=== PATIENT | male | born 1945 | race African-American/Black ===

== ENCOUNTER 2018-11-30 11:19 | Emergency (ER) | payer MEDICARE, OTHER ==
[~2018-11-30] VITALS: Ht 188 cm; Wt 118.2 kg
[~2018-11-30 11:19] MED LIST: HYDR-3965 PO; K, MAG and/or Phos replacement - Verify level? MC SCH; LISI-600 PO; SERT25TA PO; pantoprazole 40 MG vial IV SCH
[2018-11-30] MEDS ORDERED: propofol 1000mg/100ml bottle 100 ML IV PRN (11:35)
[2018-11-30] MEDS ORDERED: MIDAZolam 5mg/ml 2ml vial IV ONE (11:35)
[2018-11-30 11:57] VITALS: BP 161/67
[2018-11-30] MEDS ORDERED: rocuronium 10mg/ml inj IV ONE (12:00)
[2018-11-30] MEDS ORDERED: etomidate 2mg/ml inj. ONE (12:00)
[2018-11-30] MEDS ORDERED: DOBUTamine/D5W 500mg/250ml premix IV ONE (12:00)
[2018-11-30] MEDS ORDERED: naloxone 2mg/2ml inj ONE (12:00)
[2018-11-30] MEDS ORDERED: amiodarone 50MG/ML inj IV ONE (12:00)
[2018-11-30] MEDS ORDERED: NORepinephrine 1 mg/ml inj IV ONE (12:00)
[2018-11-30] MEDS ORDERED: calcium chloride 100 MG/1 ML inj IV ONE (12:00)
[2018-11-30] MEDS ORDERED: DOPamine/D5W 400mg/250ml bag IV ONE (12:00)
[2018-11-30] MEDS ORDERED: sod chloride 0.9% 10ml flush syringe IV ONE ×2 (12:00)
[2018-11-30] MEDS ORDERED: sodium bicarbonate (8.4%) 1 mEq/ml syringe ONE (12:00)
[2018-11-30] MEDS ORDERED: dextrose 50%-water 50ml dispensing syringe IV ONE (12:00)
[2018-11-30] MEDS ORDERED: epiNEPHrine 0.1mg/ml 10ml syringe ONE (12:00)
--- NOTE | 2018-11-30 12:01 | NUR ---
1144 100J SHOCK ADMINISTERED 1145 200J SHOCK ADMINISTERED, NO PULSE, CPR INITIATED 1146 1MG EPI GIVEN 1148 300MG AMIODARONE GIVEN, US INDICATED NO CHEST WALL MOVEMENT, NO CARDIAC CONTRACTILITY, CPR RESUMED 1149 0.4MG NARCAN GIVEN 1150 1MG EPI GIVEN, US INDICATED 0 CHEST WALL MOVEMENT, 0 CONTRACTILITY 1150 1MG CALCIUM, 1MG BICARB GIVEN 1151 1MG D50 GIVEN 1152 US INDICATED 0 CHEST WALL MOVEMENT, 0 CARDIAC CONTRACTILITY, V FIB- SHOCK ADMIN AT 200J, 0 WALL MOTION, 0 CONTRACTILITY, CPR RESUMED 1153 1MG EPI GIVEN 1154 PULSE CHECK 0 CHEST WALL MOVEMENT, 0 CONTRACTILITY 1156 PULSE PRESENT, HR 66, CO2 46 1157 161/67, HR 63, CO2 43 1158 END CODE FAMILY UPDATED BY DR GRANADOS
[2018-11-30 12:10] LABS: BASOPHILS % (AUTO) 0.1 % (0-1); HEMOGLOBIN 14.5 g/dl (14.0-17.9); MEAN PLATELET VOLUME 11.2 FL (7.4-10.4); MONOCYTES # (AUTO) 0.9 X10'3 (0-0.9); RED BLOOD COUNT 5.14 X10'6 (4.70-6.10)
[2018-11-30 12:12] LABS: EOSINOPHILS % (AUTO) 0.1 % (0-6); HEMATOCRIT 46.7 % (42.0-52.0); LYMPHOCYTES # (AUTO) 3.6 X10'3 (1.1-4.8); LYMPHOCYTES % (AUTO) 21.4 % (21-51); MEAN CORPUSCULAR HEMOGLOBIN 28.2 PG (27.0-31.0); MEAN CORPUSCULAR VOLUME 90.8 FL (78-98); MONOCYTES % (AUTO) 5.1 % (2-12); NEUTROPHILS # (AUTO) 12.2 X10'3 (1.8-7.7); NEUTROPHILS % (AUTO) 73.3 % (42-75); PLATELET COUNT 344 X10'3 (140-440); RED CELL DISTRIBUTION WIDTH 13.6 % (11.5-14.5); WHITE BLOOD COUNT 16.7 X10'3 (4.5-11.0)
--- NOTE | 2018-11-30 12:14 | NUR ---
DOBUTAMINE DRIP TITRATED UP TO 7MCG/KG/MIN AT THIS TIME.
[2018-11-30 12:16] LABS: INR 1.3 INR; PARTIAL THROMBOPLASTIN TIME 39 SECONDS (22-32); PROTHROMBIN TIME 12.6 SECONDS (9.0-12.0)
[2018-11-30 12:18] LABS: ALANINE AMINOTRANSFERASE 57 U/L (12-78); ALBUMIN 2.3 G/DL (3.4-5.0); ALBUMIN/GLOBULIN RATIO 0.4 (1.1-1.5); ALKALINE PHOSPHATASE 107 IU/L (46-116); ANION GAP 27 (8-16); ASPARTATE AMINO TRANSFERASE 99 U/L (10-37); BLOOD UREA NITROGEN 58 MG/DL (7-18); BUN/CREATININE RATIO 17.4 (5.4-32.0); CALCIUM 10.2 MG/DL (8.5-10.1); CHLORIDE 92 MMOL/L (99-107); CREATININE 3.33 MG/DL (0.60-1.10); GLUCOSE 290 MG/DL (70-104); SODIUM 133 MMOL/L (135-145); eGFR 22 ML/MIN
[2018-11-30 12:20] LABS: ABG BASE EXCESS -25.1 mmol/L (-2.0-3.0); ABG HCO3 9.7 mmol/L (22.0-26.0); ABG PCO2 (T) 59.4 mmHg (35.0-48.0); ABG PH (T) 6.821 (7.350-7.450); ABG PO2 (T) 82.2 mmHg (83-108); FCOHb 0.5 % (0.5-1.5); FMetHb 0.2 % (0.3-1.12); FO2Hb 86.4 % (94-100); PATIENT TEMPERATURE 35.9; PEEP 5 cm H2O; RESPIRATORY RATE 18 b/min; TIDAL VOLUME 500 mL; TOTAL HEMOGLOBIN 13.1 G/dl (14.0-18.0)
[2018-11-30 12:25] LABS: TOTAL CARBON DIOXIDE 14.3 MMOL/L (24-32)
[2018-11-30] MEDS ORDERED: sodium bicarbonate (8.4%) inj. 150 MEQ in dextrose 5%-water 1,000 ML IV SCH (12:25)
[2018-11-30] MEDS ORDERED: sodium bicarbonate (8.4%) inj. 150 MEQ in dextrose 5%-water 1,000 ML IV ONE (12:25)
[2018-11-30] MEDS ORDERED: ondansetron/PF 4mg/2ml inj IV PRN (12:40)
[2018-11-30] MEDS ORDERED: potassium Cl 20 mEq SR tablet PO PRN ×2 (12:40)
[2018-11-30] MEDS ORDERED: normal saline 1000ml 1,000 ML IV SCH (12:40)
[2018-11-30] MEDS ORDERED: Neutra Phos packet PO PRN (12:40)
[2018-11-30] MEDS ORDERED: morphine 4 MG/ML inj SYRINge IV PRN ×2 (12:40)
[2018-11-30] MEDS ORDERED: magnesium 4gm in 100ml NS 100 ML IV PRN (12:40)
[2018-11-30] MEDS ORDERED: acetaminophen 325mg tablet PO PRN ×2 (12:40)
[2018-11-30] MEDS ORDERED: sodium phosphate inj. 30 MMOL in dextrose 5%-water 250 ML IV PRN (12:40)
[2018-11-30] MEDS ORDERED: magnesium hydroxide 30ml (MOM) UD suspension PO PRN (12:40)
[2018-11-30] MEDS ORDERED: sodium phosphate inj. 15 MMOL in dextrose 5%-water 150 ML IV PRN (12:40)
[2018-11-30] MEDS ORDERED: magnesium Cl slow-release 64mg tablet PO PRN (12:40)
[2018-11-30] MEDS ORDERED: magnesium 2GM in 50ml NS 50 ML IV PRN (12:40)
[2018-11-30] MEDS ORDERED: FENTANYL-0.9 % NACL/PF 100 ML IV PRN (12:47)
[2018-11-30] MEDS ORDERED: midazolam 100mg in NS 100ml 100 ML IV PRN (12:47)
[2018-11-30 13:28] LABS: LARGE PLATELETS FEW; PLATELET ESTIMATE NORMAL; TOTAL CELLS COUNTED 100
--- NOTE | 2018-11-30 14:20 | NUR ---
POOJA ADEN MADE AWARE FAMILY IS TO CALL BACK WITH [facility].
--- NOTE | 2018-11-30 16:01 | NUR ---
Call to [facility] for to transport Pt.s remains.
--- NOTE | 2018-11-30 17:17 | NUR ---
Patients remains to sent to [facility]. No belongings of note sent W/ patient remains
[2018-11-30 17:33] LABS: OCCULT BLOOD STOOL POSITIVE (Neg)
[2018-11-30] MEDS ORDERED: docusate sod 100mg capsule PO SCH (20:00)
[2018-12-01] MEDS ORDERED: mineral oil/petrolatum ophthal oint EACHEYE SCH (14:00)
[2018-12-02] MEDS ORDERED: lactulose 20gm/30ml cup PO PRN (12:40)
== END 2018-11-30 17:19 | disposition expired ==
LOC: ER 11:20
DX: I46.9 Cardiac arrest, cause unspecified (principal); K92.2 Gastrointestinal hemorrhage, unspecified; E87.4 Mixed disorder of acid-base balance; N17.9 Acute kidney failure, unspecified; E11.65 Type 2 diabetes mellitus with hyperglycemia; I10 Essential (primary) hypertension; K21.9 Gastro-esophageal reflux disease without esophagitis; I48.91 Unspecified atrial fibrillation; Z98.890 Other specified postprocedural states; Z79.899 Other long term (current) drug therapy
CPT/HCPCS: 31500; 36415; 36556; 36600; 71045; 80053; 82272; 82803; 84484; 85018; 85025; 85610; 85730; 86885; 86900; 86901; 93005; 94760; 96365; 96375; 99291; 99292; C9113; J0171; J0282; J1250; J1265; J2250; J2310; J2704; 94002; 96374; J3490